=== PATIENT | male | born 1980 | race Caucasian/White ===

== ENCOUNTER 2020-01-12 13:55 | Emergency (ER) | payer MEDICAID ==
[~2020-01-12] VITALS: Ht 177.8 cm; Wt 86.4 kg
[2020-01-12 14:17] VITALS: BP 141/77
== END 2020-01-12 15:05 | disposition home or self-care (01) ==
LOC: ER 13:57
DX: J39.2 Other diseases of pharynx (principal); Z20.828 Contact with and (suspected) exposure to other viral communicable diseases
CPT/HCPCS: 99282

== ENCOUNTER 2020-05-18 23:23 | Inpatient (IN) | payer MEDICAID ==
[~2020-05-18] VITALS: Ht 177.8 cm; Wt 90.9 kg
[2020-05-18] MEDS ORDERED: TETanus/Pertussis (Acell)/Diphther VAC/PF (Tdap-Adult) 0.5ml syringe IMVAC ONE (23:30)
[2020-05-18] MEDS ORDERED: cephalexin 250mg capsule PO ONE (23:30)
[2020-05-18] MEDS ORDERED: sulfamethoxazole/trimethoprim DS (800/160mg) tablet PO ONE (23:30)
[2020-05-18] MEDS ORDERED: SULF1TAB49 PO (23:31)
[2020-05-18] MEDS ORDERED: CEPH-572 PO (23:31)
[2020-05-18] MEDS ORDERED: CefTRIAXone 2gm/D5W 50ml 50 ML IV ONE (23:40)
[2020-05-18] MEDS ORDERED: normal saline 1000ML IV soln IV ONE (23:40)
[2020-05-18] MEDS ORDERED: vancomycin/NS 1 GM ADD-VANTAGE 250 ML IV ONE (23:40)
--- NOTE | 2020-05-18 23:48 | NUR ---
dr. bartholomew reports to pt that he will need admission and antibiotics. pt is agreeable to staying. pts friend, mars, updated in our parking lot (he brought him here),his number [phone].
[2020-05-19] MEDS ORDERED: NO HOME MEDS (00:31)
--- NOTE | 2020-05-19 00:58 | NUR ---
PT WITH PIV NOW , PLACED WITH US, 18 G L AC AFTER 4 ATTEMPTS. ROCEFIN INFUSING AND 1 LITER NS. GIVEN TETNUS BOOSTER. PT OK TO EAT AND GIVEN WATER AND JUICE. WOUND CLEANED AND PHOTO TAKEN.
[2020-05-19 01:01] LABS: BASOPHILS % (AUTO) 0.4 % (0-1); EOSINOPHILS # (AUTO) 0.1 X10'3 (0-0.9); EOSINOPHILS % (AUTO) 1.2 % (0-6); HEMATOCRIT 37.1 % (42.0-52.0); HEMOGLOBIN 12.4 g/dl (14.0-17.9); LYMPHOCYTES # (AUTO) 1.7 X10'3 (1.1-4.8); LYMPHOCYTES % (AUTO) 16.1 % (21-51); MEAN CORPUSCULAR HEMOGLOBIN 28.8 PG (27.0-31.0); MEAN CORPUSCULAR HGB CONC 33.4 g/dL (33.0-36.5); MEAN CORPUSCULAR VOLUME 86.4 FL (78-98); MONOCYTES # (AUTO) 1.2 X10'3 (0-0.9); MONOCYTES % (AUTO) 11.4 % (2-12); NEUTROPHILS # (AUTO) 7.4 X10'3 (1.8-7.7); NEUTROPHILS % (AUTO) 70.9 % (42-75); PLATELET COUNT 306 X10'3 (140-440); RED CELL DISTRIBUTION WIDTH 14.1 % (11.5-14.5); WHITE BLOOD COUNT 10.4 X10'3 (4.5-11.0)
[2020-05-19 01:14] LABS: ALANINE AMINOTRANSFERASE 77 U/L (12-78); ALBUMIN 3.5 G/DL (3.4-5.0); ALBUMIN/GLOBULIN RATIO 0.7 (1.1-1.5); ALKALINE PHOSPHATASE 62 IU/L (46-116); ANION GAP 11 (8-16); ASPARTATE AMINO TRANSFERASE 45 U/L (10-37); BILIRUBIN,TOTAL 0.3 MG/DL (0.1-1.0); BLOOD UREA NITROGEN 8 MG/DL (7-18); BUN/CREATININE RATIO 7.5 (5.4-32.0); CHLORIDE 103 MMOL/L (99-107); CREATININE 1.06 MG/DL (0.60-1.10); GLUCOSE 110 MG/DL (70-104); POTASSIUM 3.7 MMOL/L (3.5-5.1); SODIUM 139 MMOL/L (135-145); TOTAL CARBON DIOXIDE 24.7 MMOL/L (24-32); TOTAL PROTEIN 8.5 G/DL (6.4-8.2); eGFR 78 ML/MIN
[2020-05-19] MEDS ORDERED: ondansetron/PF 4mg/2ml inj IV PRN (01:20)
[2020-05-19] MEDS ORDERED: potassium Cl 20 mEq SR tablet PO PRN ×2 (01:20)
[2020-05-19] MEDS ORDERED: mag hydrox/Alum hydrox/simeth 30ml oral suspension PO PRN (01:20)
[2020-05-19] MEDS ORDERED: potassium CL 10mEq/100ml bag 100 ML IV PRN ×2 (01:20)
[2020-05-19] MEDS ORDERED: HYDROcodone/acetaminophen 5mg/325mg tablet PO PRN (01:20)
[2020-05-19] MEDS ORDERED: magnesium hydroxide 30ml (MOM) UD suspension PO PRN (01:20)
[2020-05-19] MEDS ORDERED: bisacodyl 10mg suppository rectal RC PRN (01:20)
[2020-05-19] MEDS ORDERED: metoclopramide 5 mg/ml inj IV PRN (01:20)
[2020-05-19] MEDS ORDERED: magnesium Cl slow-release 64mg tablet PO PRN (01:20)
[2020-05-19] MEDS ORDERED: acetaminophen 650mg rectal suppository RC PRN (01:20)
[2020-05-19] MEDS ORDERED: magnesium 2GM in 50ml NS 50 ML IV PRN (01:20)
[2020-05-19] MEDS ORDERED: magnesium 4gm in 100ml NS 100 ML IV PRN (01:20)
[2020-05-19] MEDS ORDERED: acetaminophen 325mg tablet PO PRN ×2 (01:20)
[2020-05-19] MEDS ORDERED: HYDROcodone/acetaminophen 10/325mg tab PO PRN (01:20)
[2020-05-19 01:38] LABS: HEMOGLOBIN A1C 5.6 % (4.5-6.2)
[2020-05-19] MEDS: VANCOmycin 1250MG/NS 250ml Bag 250 ML IV SCH ×2 (02:02→10:44)
[2020-05-19 02:30] VITALS: BP 138/87
--- NOTE | 2020-05-19 06:33 | NUR ---
Problems reprioritized. Patient report given, questions answered & plan of care reviewed with Maria Esther CLAIRE.
--- NOTE | 2020-05-19 06:47 | NUR ---
Patient in room [facility]. I have received report from cristian CLAIRE and had the opportunity to ask questions and assume patient care.
[2020-05-19 07:00] VITALS: BP 126/82
[2020-05-19] MEDS: nicotine 14mg patch - 24hr TD SCH ×2 (08:00→08:20)
[2020-05-19] MEDS ORDERED: K and/or MAG REPLACEMENT MC SCH (08:00)
[2020-05-19] MEDS: enoxaparin 40mg/0.4ml syringe SUBCUT SCH ×2 (08:00→08:19)
[2020-05-19] MEDS ORDERED: CefTRIAXone/D5W-Rocephin 1gm 50 ML IV SCH (08:00)
--- NOTE | 2020-05-19 08:38 | NUR ---
pt refused Habitrol patch and Lovenox. Education given, pt continues to refuse. notified.
[2020-05-19 12:50] VITALS: BP 131/89
--- NOTE | 2020-05-19 13:00 | NUR ---
Throughout shift, Pt refusing to ambulate outside room. Pt states "I walk enough in the room going to the bathroom.Education given. psychiatry adult physician notified.Will continue to monitor.
[2020-05-19 13:17] LABS: URINE AMPHETAMINE SCREEN POSITIVE (Neg); URINE BARBITUATE SCREEN NEGATIVE (Neg); URINE BENZODIAZEPINES SCREEN NEGATIVE (Neg); URINE CANNABINOID SCREEN NEGATIVE (Neg); URINE COCAINE SCREEN NEGATIVE (Neg); URINE METHADONE SCREEN NEGATIVE (Neg); URINE OPIATE SCREEN NEGATIVE (Neg); URINE PHENCYCLIDINE SCREEN NEGATIVE (Neg)
--- NOTE | 2020-05-19 14:50 | NUR ---
Wound care POC. Arrived at bedside for assessment. Pt expressed agitation about being here as he expected he would be leaving by now. He gave verbal consent for me to assess him. His right elbow presents with open abscess with yellow slough filled wound bed. Surrounding area is reddened and warm, mild edema noted which pt states was much better than when he admitted. He has been receiving IV abx. I educated him on signs of infection. I mentioned having a wound physician assess the wound tomorrow and he got annoyed because he did not want to still be here tomorrow. He kept stating that the wound was better and he had treated wounds like this at home before and that they just "never got so red." I explained to him how IV abx work and that if the infection wasn't completely cleared from the wound that the infection would likely return and be harder to treat. I cleansed the wound and dressed it with honey, alginate, and optifoam. I educated pt on each step and provided extra supplies for him as he was pretty clear that he did not plan to follow up with the outpatient center. By the time I got back to my desk to chart on him the pt had left AMA.
--- NOTE | 2020-05-19 14:52 | NUR ---
Pt left AMA. Education given. 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 Dr Chowdary paged. PIV d/c'd, cath intact. All personal belongings home with patient.
--- NOTE | 2020-05-19 15:03 | NUR ---
WOUND INFECTION EDUCATION PROVIDED BY WOUND CARE 1. Patient instructed to call their primary doctor, or go the ED immediately if any of the following symptoms occur: * Increased pain in wound * Increase in drainage from the wound * Redness in the skin surrounding the wound * Warmth in the skin surrounding the wound * Bleeding from the wound * Temperature of 101 or greater 2. If any of these occur while in the hospital tell a nurse immediately. Addendum: 05/19/20 at 1503 by Fozia Crowe RN Amended: Links added.
[2020-05-19] MEDS ORDERED: temazepam 15mg capsule PO PRN (21:00)
[2020-05-20] MEDS ORDERED: VANCOMYCIN LEVEL IV ONE (01:30)
== END 2020-05-19 14:46 | disposition left against medical advice (07) | DRG 383 ==
LOC: ER 23:23 → ED HOLD 05-19 01:17 → SUR 3N 05-19 02:15
PROVIDERS: ADMIT Family Medicine; ATTEND Family Medicine
DX: L03.113 Cellulitis of right upper limb (principal); T63.301A Toxic effect of unspecified spider venom, accidental (unintentional), initial encounter; Z87.891 Personal history of nicotine dependence; Y93.89 Activity, other specified; Y92.89 Other specified places as the place of occurrence of the external cause; Y99.8 Other external cause status
CPT/HCPCS: 36415; 73080; 80053; 80305; 83036; 83605; 84145; 85025; 87040; 87081; 90715; 99285; G0378; J0696; J1650; J3370; J7030

== ENCOUNTER 2024-10-03 17:13 | Emergency (ER) | payer MEDICAID ==
[~2024-10-03] VITALS: Ht 177.8 cm; Wt 97.3 kg
[~2024-10-03 17:13] MED LIST: NO HOME MEDS
[2024-10-03] MEDS: acetaminophen 325mg tablet PO ONE (17:24)
[2024-10-03 17:50] LABS: STREP A SCREEN POSITIVE (Neg)
[2024-10-03] MEDS: ibuprofen tablet 400 MG TABLET PO ONE (18:11)
[2024-10-03] MEDS: amoxicillin 250mg capsule PO ONE (18:12)
[2024-10-03] MEDS ORDERED: AMOX500C2 PO (19:02)
[2024-10-03 19:11] VITALS: BP 119/77; PULSE 102; RESP 16; TEMP 100.5; O2SAT 97
== END 2024-10-03 19:06 | disposition home or self-care (01) ==
LOC: ER 17:13
DX: J02.9 Acute pharyngitis, unspecified (principal); J39.2 Other diseases of pharynx; Z79.2 Long term (current) use of antibiotics
CPT/HCPCS: 87880; 99284